=== PATIENT | female | born 1955 | race Caucasian/White ===

== ENCOUNTER 2022-06-02 10:33 | Inpatient (IN) ==
[2022-06-02] MEDS ORDERED: Lactated Ringers 1000 ml BAG 1,000 ML IV ONE (12:08)
[2022-06-02] MEDS ORDERED: Senna TAB 8.6 mg TAB PO PRN (13:05)
[2022-06-02] MEDS ORDERED: Polyethylene Glycol 3350 17 GM PACKET PO PRN (13:05)
[2022-06-02 13:26] LABS: ABS Lymphocytes 0.6 10^3/ul (1.0-4.8); ABS Monocytes 0.1 10^3/ul (0-0.8); Eosinophil % 0.1 %; Hematocrit 36 % (35-47); Hemoglobin 12.1 g/dL (12.0-16.0); Lymphocyte % 9.1 %; Mean Corpuscular HGB Conc 34 g/dL (31-36); Mean Corpuscular Hemoglobin 31 pg (27-31); Mean Corpuscular Volume 91 fL (80-97); Mean Platelet Volume 6.5 fL (7.4-10.4); Platelet Count 222 10^3/uL (150-450); Red Blood Count 3.92 10^6 /uL (3.70-4.87); Red Cell Distribution Width 15 % (10-15); White Blood Count 6.8 10^3/uL (3.5-10.8)
[2022-06-02 13:49] LABS: Albumin 3.5 g/dL (3.2-5.2); Albumin/Globulin Ratio 1.4 (1-3); C Reactive Protein 134.07 mg/L (<8.01); Calcium 10.1 mg/dL (8.6-10.3); Creatinine, Serum 0.35 mg/dL (0.51-0.95); Globulin 2.5 g/dL (2-4); Total Bilirubin 0.3 mg/dL (0.2-1.0); eGFR CKD-EPI 113.4 (>60)
[2022-06-02 14:53] LABS: Urine Appearance Cloudy; Urine Bilirubin Negative (Negative); Urine Blood 2+ (Negative); Urine Color Yellow; Urine Glucose Negative (Negative); Urine Ketones Negative (Negative); Urine Nitrite Positive (Negative); Urine Protein 1+(30 mg/dL) (Negative); Urine Specific Gravity 1.016 (1.002-1.030); Urine Urobilinogen Negative (Negative)
[2022-06-02 15:01] LABS: Urine Bacteria 1+ (Absent); Urine Red Blood Cell 2+(6-10/hpf) (Absent); Urine White Blood Cell 3+(>20/hpf) (Absent)
[2022-06-02 16:16] LABS: INR 1.13 (0.88-1.18)
[2022-06-02] MEDS: Simethicone SUSP ORALSYR 66.66 MG/ML PO SCH ×2 (16:25→22:07)
[2022-06-02] MEDS ORDERED: Morphine 2 MG/ML SYRINGE IV ONE (21:30)
[2022-06-02] MEDS: Enoxaparin 40 MG/0.4 ML SYR SUBCUT SCH (21:52)
[2022-06-03] MEDS ORDERED: Calcium Carb (TUMS) 500 mg CHEW TAB PO ONE (00:38)
[2022-06-03 05:19] LABS: ABS Lymphocytes 1.3 10^3/ul (1.0-4.8); ABS Monocytes 1.3 10^3/ul (0-0.8); ABS Neutrophils 6.5 10^3/ul (1.5-7.7); Eosinophil % 0.2 %; Hematocrit 33 % (35-47); Hemoglobin 11.3 g/dL (12.0-16.0); Lymphocyte % 14.6 %; Mean Corpuscular HGB Conc 35 g/dL (31-36); Mean Corpuscular Hemoglobin 32 pg (27-31); Mean Corpuscular Volume 92 fL (80-97); Mean Platelet Volume 6.2 fL (7.4-10.4); Platelet Count 234 10^3/uL (150-450); Red Blood Count 3.52 10^6 /uL (3.70-4.87); Red Cell Distribution Width 15 % (10-15); White Blood Count 9.2 10^3/uL (3.5-10.8)
[2022-06-03 06:06] LABS: Calcium 10.2 mg/dL (8.6-10.3); Creatinine, Serum 0.49 mg/dL (0.51-0.95); Magnesium 1.6 mg/dL (1.9-2.7); Potassium 3.1 mmol/L (3.5-5.0); eGFR CKD-EPI 104.5 (>60)
[2022-06-03 06:21] LABS: TSH Ultra Thyroid Stim Horm 1.67 mcIU/mL (0.34-5.60)
[2022-06-03] MEDS: cefTRIAXone 1 gm/50 mL D5W 1 GM/50 ML BAG IV SCH (06:42)
[2022-06-03] MEDS: Aspirin EC 81 mg TAB.EC (enteric coated) PO SCH (08:20)
[2022-06-03] MEDS ORDERED: Potassium Chlor 20 meq TAB.ER PO ONE ×2 (09:35→14:00)
[2022-06-03] MEDS ORDERED: Magnesium Sulfate 2 gm BAG 2 GM/50 ML BAG IVPB ONE (09:37)
[2022-06-03] MEDS ORDERED: Lactated Ringers 1000 ml BAG 1,000 ML IV ONE (11:04)
[2022-06-03] MEDS: Simethicone SUSP ORALSYR 66.66 MG/ML PO SCH ×3 (11:08→22:32)
[2022-06-03] MEDS: Enoxaparin 40 MG/0.4 ML SYR SUBCUT SCH (22:33)
[2022-06-03] MEDS ORDERED: Morphine 2 MG/ML SYRINGE IV ONE (22:46)
[2022-06-03] MEDS: Lactated Ringers 1000 ml BAG 1,000 ML IV SCH (22:50)
[2022-06-04] MEDS: cefTRIAXone 1 gm/50 mL D5W 1 GM/50 ML BAG IV SCH (05:30)
[2022-06-04 06:35] LABS: Hematocrit 29 % (35-47); Hemoglobin 9.8 g/dL (12.0-16.0); Mean Corpuscular HGB Conc 34 g/dL (31-36); Mean Corpuscular Hemoglobin 32 pg (27-31); Mean Corpuscular Volume 94 fL (80-97); Platelet Count 169 10^3/uL (150-450); Red Blood Count 3.04 10^6 /uL (3.70-4.87); Red Cell Distribution Width 15 % (10-15); White Blood Count 5.1 10^3/uL (3.5-10.8)
[2022-06-04 06:47] LABS: Calcium 8.6 mg/dL (8.6-10.3); Magnesium 1.6 mg/dL (1.9-2.7); Potassium 3.9 mmol/L (3.5-5.0)
[2022-06-04 06:51] LABS: Creatinine, Serum 0.26 mg/dL (0.51-0.95); eGFR CKD-EPI 121.8 (>60)
[2022-06-04] MEDS ORDERED: Magnesium Sulfate 2 gm BAG 2 GM/50 ML BAG IVPB ONE (07:21)
[2022-06-04 08:57] LABS: ABS Eosinophils 0.1 10^3/ul (0-0.6); ABS Lymphocytes 1.9 10^3/ul (1.0-4.8); ABS Monocytes 0.6 10^3/ul (0-0.8); ABS Neutrophils 2.5 10^3/ul (1.5-7.7); Eosinophil % 1.8 %; Lymphocyte % 36.2 %; Nucleated Red Blood Cells % 0.1
[2022-06-04] MEDS: Aspirin EC 81 mg TAB.EC (enteric coated) PO SCH (10:04)
[2022-06-04] MEDS: Simethicone SUSP ORALSYR 66.66 MG/ML PO SCH ×3 (10:05→20:30)
[2022-06-04] MEDS: Lactated Ringers 1000 ml BAG 1,000 ML IV SCH (12:00)
[2022-06-04] MEDS: Enoxaparin 40 MG/0.4 ML SYR SUBCUT SCH (20:30)
[2022-06-04] MEDS ORDERED: Morphine 2 MG/ML SYRINGE IV ONE (21:35)
[2022-06-05] MEDS: Lactated Ringers 1000 ml BAG 1,000 ML IV SCH (01:24)
[2022-06-05 05:46] LABS: Hematocrit 32 % (35-47); Hemoglobin 10.7 g/dL (12.0-16.0); Mean Corpuscular HGB Conc 34 g/dL (31-36); Mean Corpuscular Hemoglobin 32 pg (27-31); Mean Corpuscular Volume 94 fL (80-97); Mean Platelet Volume 6.4 fL (7.4-10.4); Platelet Count 216 10^3/uL (150-450); Red Blood Count 3.35 10^6 /uL (3.70-4.87); Red Cell Distribution Width 15 % (10-15); White Blood Count 6.8 10^3/uL (3.5-10.8)
[2022-06-05 05:59] LABS: Calcium 9.3 mg/dL (8.6-10.3); Creatinine, Serum 0.33 mg/dL (0.51-0.95); Potassium 3.8 mmol/L (3.5-5.0)
[2022-06-05 07:28] LABS: ABS Eosinophils 0.2 10^3/ul (0-0.6); ABS Lymphocytes 1.9 10^3/ul (1.0-4.8); ABS Monocytes 0.7 10^3/ul (0-0.8); ABS Neutrophils 3.9 10^3/ul (1.5-7.7); Eosinophil % 2.9 %; Lymphocyte % 28.7 %; Nucleated Red Blood Cells % 0.2
[2022-06-05 08:14] LABS: C Reactive Protein 23.24 mg/L (<8.01); Magnesium 1.9 mg/dL (1.9-2.7)
[2022-06-05] MEDS ORDERED: Pneumococcal Vac 23-Polyvalent IM ONE (09:00)
[2022-06-05] MEDS: Simethicone SUSP ORALSYR 66.66 MG/ML PO SCH ×3 (11:00→20:54)
[2022-06-05] MEDS: Aspirin EC 81 mg TAB.EC (enteric coated) PO SCH (11:00)
[2022-06-05] MEDS: Enoxaparin 40 MG/0.4 ML SYR SUBCUT SCH (20:54)
[2022-06-05] MEDS: Sulfamethox/Trimethoprim DS TAB 800/160 mg PO SCH ×2 (20:54→21:53)
[2022-06-05] MEDS: Sulfamethox/Trimethoprim SUSP 800-160mg/20 ML UDC PO SCH (22:24)
[2022-06-06] MEDS: Simethicone SUSP ORALSYR 66.66 MG/ML PO SCH (09:36)
[2022-06-06] MEDS: Sulfamethox/Trimethoprim SUSP 800-160mg/20 ML UDC PO SCH ×2 (09:36→20:01)
[2022-06-06] MEDS: Aspirin EC 81 mg TAB.EC (enteric coated) PO SCH (09:36)
[2022-06-06] MEDS: Enoxaparin 40 MG/0.4 ML SYR SUBCUT SCH (20:01)
[2022-06-07] MEDS: Sulfamethox/Trimethoprim SUSP 800-160mg/20 ML UDC PO SCH ×2 (07:34→20:05)
[2022-06-07] MEDS: Aspirin EC 81 mg TAB.EC (enteric coated) PO SCH (07:35)
[2022-06-07] MEDS: Enoxaparin 40 MG/0.4 ML SYR SUBCUT SCH (20:05)
[2022-06-08] MEDS ORDERED: Dextran 70/Hypromellose Tears Eye Drops 15 ml BTL (for Artificials Tears) BOTH EYES PRN (09:11)
[2022-06-08] MEDS: Aspirin EC 81 mg TAB.EC (enteric coated) PO SCH (10:08)
[2022-06-08] MEDS: Sulfamethox/Trimethoprim SUSP 800-160mg/20 ML UDC PO SCH (10:12)
[2022-06-08] MEDS: Enoxaparin 40 MG/0.4 ML SYR SUBCUT SCH (21:41)
[2022-06-08] MEDS ORDERED: Morphine 2 MG/ML SYRINGE IV ONE (23:00)
[2022-06-09] MEDS ORDERED: Morphine 2 MG/ML SYRINGE IV PRN (08:29)
[2022-06-09] MEDS: Aspirin EC 81 mg TAB.EC (enteric coated) PO SCH (09:10)
[2022-06-09 10:13] VITALS: BP 144/71
[2022-06-09 12:26] LABS: Rapid COVID-19 Molecular Undetected (Undetected)
== END 2022-06-09 13:20 | DRG 689 ==
LOC: EDHOLD 10:33 → ED 10:33 → SUATTDRO 13:05 → MED 20:04 → SUATTDRO 06-04 10:42
PROVIDERS: ADMIT Internal Medicine; ATTEND Internal Medicine Hematology & Oncology